=== PATIENT | male | born 1975 | race Caucasian/White ===

== ENCOUNTER 2020-07-03 11:08 | Emergency (ER) | payer OTHER ==
[~2020-07-03] VITALS: Ht 185.4 cm; Wt 111.1 kg
== END 2020-07-03 14:59 | disposition home or self-care (01) ==
LOC: ED 11:08
DX: S29.9XXA Unspecified injury of thorax, initial encounter (principal); X58.XXXA Exposure to other specified factors, initial encounter; Y93.89 Activity, other specified; Y92.89 Other specified places as the place of occurrence of the external cause; Y99.8 Other external cause status